=== PATIENT | female | born 1975 | race Caucasian/White ===

== ENCOUNTER 2017-03-23 14:58 | Emergency (ER) | payer BC ==
[2017-03-23 15:15] VITALS: BP 115/63
[2017-03-23] MEDS ORDERED: Sodium Chloride 0.9% 10 ML Syringe FLUSH PRN (15:15)
[2017-03-23] MEDS ORDERED: methylPREDNISolone Sodium Succinate 125 MG/2 ML SDV IVPUSH ONE (15:16)
[2017-03-23] MEDS ORDERED: Ondansetron 4 MG/2 ML SDV IVPUSH ONE (15:16)
--- NOTE | 2017-03-23 15:22 | EDM.PDOC ---
ED HPI GENERAL MEDICAL PROBLEM - General Chief Complaint: General Stated Complaint: Nausea/Dizziness Time Seen by Provider: 03/23/17 15:02 Source of Information: Reports: Patient, RN, RN notes reviewed History Limitations: Reports: No limitations - History of Present Illness INITIAL COMMENTS - FREE TEXT/NARRATIVE: Patient presents to the emergency room at [facility] with an acute attack of Mnire's disease. The patient states she has a long-standing history of Mni re's disease. She states she usually keeps it under control with Zofran and meclizine. The patient states her current symptoms began a couple of days ago she has been taking her medications but they have not helped. The patient states that her symptoms are out of control today. The patient complains of severe vertigo with bilateral tinnitus. The patient states she does have some mild hearing loss. When her Mnire's disease is under control, she does not have any of these symptoms. The patient states she feels extremely nauseated. The patient has not vomited. No other symptoms. Onset: gradual Onset Date: 03/21/17 Duration: Getting worse Location: Reports: head Treatments EXECUTIVE CREATIVE DIRECTOR: Reports: Other (see below) Other Treatments EXECUTIVE CREATIVE DIRECTOR: Zofran, Meclizine - Related Data Allergies Allergy/AdvReac Type Severity Reaction Status Date / Time cephalexin Allergy Swollen Verified 03/23/17 15:10 Tongue Penicillins Allergy Hives Verified 03/23/17 15:10 procaine [From Novocain] Allergy Nausea and Verified 03/23/17 15:10 Vomiting Home Meds: Home Meds Diazepam [Valium] 5 mg PO TID PRN #9 tablet 03/23/17 [Rx] ED ROS GENERAL - Review of Systems Review Of Systems: See Below Constitutional: Denies: fever, chills, weakness HEENT: Reports: Hearing loss, Vertigo, Other (bilateral tinnitis) Respiratory: Denies: Shortness of Breath, Cough Cardiovascular: Denies: Chest pain, Palpitations GI/Abdominal: Reports: Nausea. Denies: Abdominal pain, Vomiting Skin: Reports: no symptoms Neurological: Reports: Dizziness, Headache. Denies: Numbness, Paresthesia, Tingling ED EXAM, GENERAL - Physical Exam Exam: See Below Exam Limited By: No limitations General Appearance: alert, moderate distress Eye Exam: bilateral eye: EOMI, normal inspection, PERRL Ears: normal external exam, normal canal, hearing grossly normal, normal TMs Ear Exam: bilateral ear: TM normal Nose: normal inspection, normal mucosa Throat/Mouth: Normal inspection, Normal oropharynx Head: atraumatic, normocephalic Neck: supple Respiratory/Chest: no respiratory distress, lungs clear, normal breath sounds Cardiovascular: regular rate, rhythm GI/Abdominal: normal bowel sounds, soft, non tender Neurological: alert, oriented Skin Exam: Warm, Dry, Intact, Normal color, No rash Course - Vital Signs Last Recorded V/S: Last Vital Signs Temp 35.2 C 03/23/17 15:14 Pulse 80 03/23/17 15:14 Resp 14 03/23/17 15:14 BP 115/63 03/23/17 15:14 Pulse Ox 100 03/23/17 15:14 - Orders/Labs/Meds Orders: Active Orders 24 hr Category Date Time Status Sodium Chloride 0.9% [Normal Saline] 1,000 ml Med 03/23/17 15:30 Active IV ASDIRECTED Sodium Chloride 0.9% [Saline Flush] Med 03/23/17 15:15 Active 10 ml FLUSH ASDIRECTED PRN Peripheral IV Insertion Adult [OM.PC] Routine Oth 03/23/17 15:15 Ordered Medication Orders Sodium Chloride (Normal Saline) 1,000 mls @ 999 mls/hr IV ASDIRECTED ALFONSO Last Admin: 03/23/17 15:30 Dose: 999 mls/hr Sodium Chloride (Saline Flush) 10 ml FLUSH ASDIRECTED PRN PRN Reason: Keep Vein Open Last Admin: 03/23/17 15:30 Dose: 10 ml Meds: Medications Generic Name Dose Route Start Last Admin Trade Name Freq PRN Reason Stop Dose Admin Sodium Chloride 1,000 mls @ 999 mls/hr 03/23/17 15:30 03/23/17 15:30 Normal Saline IV 999 mls/hr ASDIRECTED ALFONSO Administration Sodium Chloride 10 ml 03/23/17 15:15 03/23/17 15:30 Saline Flush FLUSH 10 ml ASDIRECTED PRN Administration Keep Vein Open Discontinued Medications Generic Name Dose Route Start Last Admin Trade Name Freq PRN Reason Stop Dose Admin Diazepam 2 mg 03/23/17 15:16 03/23/17 15:36 Valium IVPUSH 03/23/17 15:17 2 mg ONETIME ONE Administration Methylprednisolone Sodium Succinate 125 mg 03/23/17 15:16 03/23/17 15:32 Solu-Medrol IVPUSH 03/23/17 15:17 125 mg ONETIME ONE Administration Ondansetron HCl 4 mg 03/23/17 15:16 03/23/17 15:31 Zofran IVPUSH 03/23/17 15:17 4 mg ONETIME ONE Administration Departure - Departure Time of Disposition: 16:43 Disposition: Home, Self-Care 01 Condition: good Clinical Impression: Tinnitus of both ears Meniere's disease Qualifiers: Laterality: bilateral Qualified Code(s): H81.03 - Meniere's disease, bilateral Instructions: Tinnitus, Meniere Disease, Dizziness Referrals: Madeline Quevedo NP [Primary Care Provider] - Forms: ED Department Discharge Additional Instructions: 1. Stay well hydrated and rest 2. Take medications as prescribed 3. Avoid obnoxious stimulus 4. See your Primary in follow this week - Problem List Review Problem List Initiated/Reviewed/Updated: Yes - My Orders Last 24 Hours: My Active Orders 03/23/17 15:15 Sodium Chloride 0.9% [Saline Flush] 10 ml FLUSH ASDIRECTED PRN Peripheral IV Insertion Adult [OM.PC] Routine 03/23/17 15:30 Sodium Chloride 0.9% [Normal Saline] 1,000 ml IV ASDIRECTED - Assessment/Plan Last 24 Hours: My Active Orders 03/23/17 15:15 Sodium Chloride 0.9% [Saline Flush] 10 ml FLUSH ASDIRECTED PRN Peripheral IV Insertion Adult [OM.PC] Routine 03/23/17 15:30 Sodium Chloride 0.9% [Normal Saline] 1,000 ml IV ASDIRECTED Plan: Patient states she feels better after the IV medications. Will discharge home with a prescription for Valium and Medrol Dose Shaka. Recommend patient f/u with PCP this week.
[2017-03-23] MEDS ORDERED: Sodium Chloride 0.9% 1,000 ML IV SCH (15:30)
[2017-03-23] MEDS ORDERED: Take Home: predniSONE 20 MG, 2 Tab Pack PO ONE (16:38)
== END 2017-03-23 17:09 | disposition home or self-care (01) ==
LOC: MERGE 14:58 → SUPCPDRO 14:58 → VM.ED 14:58
DX: H81.03 Meniere's disease, bilateral (principal); Z88.0 Allergy status to penicillin
CPT/HCPCS: 99283; A9270; J2405; J2930; J3360; J7030; J7050